=== PATIENT | male | born 1950 | race Caucasian/White ===

== ENCOUNTER 2017-02-20 11:19 | Emergency (ER) | payer OTHER, SELFPAY ==
[~2017-02-20] VITALS: Ht 172.7 cm; Wt 108.9 kg
[~2017-02-20 11:19] MED LIST changes: -Amoxicillin875 MG PO; -CLOP75 PO; -EPIPEN 2-P0.3 MG/0.3 IM; -EPIPEN0.3 MG/0.3; -FISH OIL 500 M1 EAC1 PO; -Guaifenesin-Co118 ML PO; -Keflex500 MG PO; -PANT20 PO
[2017-02-20] MEDS ORDERED: EPIPEN0.3 MG/0.3 (15:13)
[2017-06-02] MEDS ORDERED: FISH OIL 500 M1 EAC1 PO (22:21)
[2017-06-03] MEDS ORDERED: Guaifenesin-Co118 ML PO (00:05)
[2017-07-22] MEDS ORDERED: Omeprazole20 M1 PO (10:47)
[2017-10-20] MEDS ORDERED: Keflex500 MG PO (07:35)
== END 2017-02-20 16:20 | disposition home or self-care (01) ==
LOC: ER 11:19
DX: L76.21 Postprocedural hemorrhage of skin and subcutaneous tissue following a dermatologic procedure (principal); I10 Essential (primary) hypertension; K21.9 Gastro-esophageal reflux disease without esophagitis; E78.5 Hyperlipidemia, unspecified; Z91.030 Bee allergy status; Z79.899 Other long term (current) drug therapy; Z79.82 Long term (current) use of aspirin
CPT/HCPCS: 99282

== ENCOUNTER → 2017-02-20 | Outpatient (CLI) | payer OTHER, SELFPAY ==
[~2017-02-20] MED LIST: ASPI81CH PO; Amoxicillin875 MG PO; CLOP75 PO; Cheratussin AC118 ML PO; EPIPEN 2-P0.3 MG/0.3 IM; EPIPEN0.3 MG/0.3; FISH OIL 500 M1 EAC1 PO; Guaifenesin-Co118 ML PO; Keflex500 MG PO; LISI20 PO; Omeprazole20 M1 PO; PANT20 PO; Prednisone20 MG PO; Simvastatin40 MG PO; Vibramycin100 MG PO
== END ==
LOC: PLD 08:54 → LAB SHORT 08:54
DX: D48.5 Neoplasm of uncertain behavior of skin (principal); D03.39 Melanoma in situ of other parts of face
CPT/HCPCS: 88305

== ENCOUNTER 2017-02-22 22:15 | Emergency (ER) | payer OTHER, SELFPAY ==
[~2017-02-22] VITALS: Ht 172.7 cm; Wt 108.9 kg
[~2017-02-22 22:15] MED LIST changes: +EPIPEN0.3 MG/0.3
[2017-06-02] MEDS ORDERED: FISH OIL 500 M1 EAC1 PO (22:21)
[2017-06-03] MEDS ORDERED: Guaifenesin-Co118 ML PO (00:05)
[2017-07-22] MEDS ORDERED: Omeprazole20 M1 PO (10:47)
[2017-10-20] MEDS ORDERED: Keflex500 MG PO (07:35)
== END 2017-02-22 23:49 | disposition home or self-care (01) ==
LOC: ER 22:15
DX: L76.22 Postprocedural hemorrhage of skin and subcutaneous tissue following other procedure (principal); Z91.030 Bee allergy status; Z79.899 Other long term (current) drug therapy; Z79.82 Long term (current) use of aspirin; I25.2 Old myocardial infarction; Z85.828 Personal history of other malignant neoplasm of skin
CPT/HCPCS: 99282

== ENCOUNTER 2017-05-08 18:25 | Emergency (ER) | payer OTHER, SELFPAY ==
[~2017-05-08] VITALS: Ht 172.7 cm; Wt 108.9 kg
== END 2017-05-08 20:41 | disposition home or self-care (01) ==
LOC: ER 18:25
DX: M25.511 Pain in right shoulder (principal); I10 Essential (primary) hypertension; E78.5 Hyperlipidemia, unspecified; K21.9 Gastro-esophageal reflux disease without esophagitis; I25.2 Old myocardial infarction; Z91.030 Bee allergy status; Z79.82 Long term (current) use of aspirin; Z79.899 Other long term (current) drug therapy
CPT/HCPCS: 73030; 99283

== ENCOUNTER 2017-07-23 06:52 | Day surgery (SDC) | payer OTHER, SELFPAY ==
[~2017-07-23] VITALS: Ht 172.7 cm; Wt 114.8 kg
[~2017-07-23 06:52] MED LIST changes: +FISH OIL 500 M1 EAC1 PO; +Guaifenesin-Co118 ML PO
== END 2017-07-23 22:43 | disposition home or self-care (01) ==
LOC: ORSCMMR 06:52 → ORD 08:00 → ORSCMMR 22:43
PROVIDERS: Internal Medicine Gastroenterology
PROC: 0D758ZZ Dilation of Esophagus, Via Natural or Artificial Opening Endoscopic (ICD-10-PCS; principal; 2017-07-23 08:00)
PROC: 0DB58ZX Excision of Esophagus, Via Natural or Artificial Opening Endoscopic, Diagnostic (ICD-10-PCS; principal; 2017-07-23 08:00)
PROC: 0DB68ZX Excision of Stomach, Via Natural or Artificial Opening Endoscopic, Diagnostic (ICD-10-PCS; principal; 2017-07-23 08:00)
PROC: 0DB48ZX Excision of Esophagogastric Junction, Via Natural or Artificial Opening Endoscopic, Diagnostic (ICD-10-PCS; principal; 2017-07-23 08:00)
DX: R13.14 Dysphagia, pharyngoesophageal phase (principal); K21.0 Gastro-esophageal reflux disease with esophagitis; K29.70 Gastritis, unspecified, without bleeding; I25.10 Atherosclerotic heart disease of native coronary artery without angina pectoris; Z79.899 Other long term (current) drug therapy; Z79.82 Long term (current) use of aspirin
CPT/HCPCS: 88305; 88342; C1726; J7030

== ENCOUNTER 2017-08-06 23:55 | Emergency (ER) | payer OTHER ==
[~2017-08-06] VITALS: Ht 172.7 cm; Wt 113.4 kg
[2017-08-07] MEDS ORDERED: PANT20 PO (00:50)
[2017-08-07] MEDS ORDERED: CLOP75 PO (00:50)
[2017-08-07] MEDS ORDERED: EPIPEN 2-P0.3 MG/0.3 IM (00:51)
[2017-08-07] MEDS ORDERED: Amoxicillin875 MG PO (02:41)
== END 2017-08-07 03:03 | disposition home or self-care (01) ==
LOC: ER 23:55
DX: J02.0 Streptococcal pharyngitis (principal); Z91.030 Bee allergy status; Z79.899 Other long term (current) drug therapy; Z79.2 Long term (current) use of antibiotics; I25.2 Old myocardial infarction
CPT/HCPCS: 87430; 99283

== ENCOUNTER 2017-08-07 06:36 | Emergency (ER) | payer OTHER ==
[~2017-08-07] VITALS: Ht 170.2 cm; Wt 99.8 kg
[~2017-08-07 06:36] MED LIST changes: +Amoxicillin875 MG PO; +CLOP75 PO; +EPIPEN 2-P0.3 MG/0.3 IM; +PANT20 PO
== END 2017-08-07 07:30 | disposition home or self-care (01) ==
LOC: ER 06:36
DX: H92.02 Otalgia, left ear (principal); Z91.030 Bee allergy status; Z79.899 Other long term (current) drug therapy; Z79.2 Long term (current) use of antibiotics; I25.2 Old myocardial infarction
CPT/HCPCS: 99282

== ENCOUNTER 2017-08-07 18:15 | Emergency (ER) | payer OTHER ==
[~2017-08-07] VITALS: Ht 172.7 cm; Wt 113.4 kg
== END 2017-08-07 20:15 | disposition left against medical advice (07) ==
LOC: ER 18:15
DX: Z53.21 Procedure and treatment not carried out due to patient leaving prior to being seen by health care provider (principal)

== ENCOUNTER → 2017-09-16 | Outpatient (CLI) | payer OTHER | LOC: LAB SHORT 17:56 → LAB 17:56 | DX: Z48.02 Encounter for removal of sutures (principal); L08.9 Local infection of the skin and subcutaneous tissue, unspecified | CPT/HCPCS: 87070; 87077; 87147; 87186; 87205 ==

== ENCOUNTER 2018-01-27 09:27 | Day surgery (SDC) | payer OTHER ==
[~2018-01-27] VITALS: Ht 172.7 cm; Wt 114.3 kg
[~2018-01-27 09:27] MED LIST changes: +Keflex500 MG PO
== END 2018-01-27 11:00 | disposition home or self-care (01) ==
LOC: ORSCMMR 09:27 → ORD 10:30 → ORSCMMR 10:30
PROVIDERS: Internal Medicine Gastroenterology
PROC: 0DBH8ZX Excision of Cecum, Via Natural or Artificial Opening Endoscopic, Diagnostic (ICD-10-PCS; principal; 2018-01-27 10:30)
PROC: 0DBL8ZX Excision of Transverse Colon, Via Natural or Artificial Opening Endoscopic, Diagnostic (ICD-10-PCS; principal; 2018-01-27 10:30)
DX: Z12.11 Encounter for screening for malignant neoplasm of colon (principal); D12.0 Benign neoplasm of cecum; K63.5 Polyp of colon; K57.30 Diverticulosis of large intestine without perforation or abscess without bleeding; Z86.010 Personal history of colon polyps; K21.9 Gastro-esophageal reflux disease without esophagitis; Z87.11 Personal history of peptic ulcer disease; I10 Essential (primary) hypertension; I25.2 Old myocardial infarction; Z79.01 Long term (current) use of anticoagulants; Z79.899 Other long term (current) drug therapy
CPT/HCPCS: 88305; J7120

== ENCOUNTER 2018-03-24 07:29 | Emergency (ER) | payer OTHER ==
[~2018-03-24] VITALS: Ht 172.7 cm; Wt 113.4 kg
[2018-03-24] MEDS ORDERED: CLOP75 PO (07:58)
[2018-03-24] MEDS ORDERED: Percocet 5-3251 EACH PO (09:02)
== END 2018-03-24 09:20 | disposition home or self-care (01) ==
LOC: ER 07:29
DX: M25.511 Pain in right shoulder (principal); I25.2 Old myocardial infarction; Z91.030 Bee allergy status; Z79.899 Other long term (current) drug therapy
CPT/HCPCS: 73030; 99283-25

== ENCOUNTER 2018-04-26 20:03 | Emergency (ER) | payer OTHER ==
[~2018-04-26] VITALS: Ht 172.7 cm; Wt 112.9 kg
[~2018-04-26 20:03] MED LIST changes: +Percocet 5-3251 EACH PO
[2018-04-26 21:06] LABS: BASOPHILS ABSOLUTE AUTO 0.12 K/mm3 (0.00-0.23); BASOPHILS PERCENT AUTO 1 % (0-2); EOSINOPHILS PERCENT AUTO 1 % (0-6); Hematocrit 46.2 % (37.0-53.0); Hemoglobin 15.2 g/dL (13.5-17.5); IMMATURE GRAN ABSOLUTE AUTO 0.08 K/mm3 (0.00-0.10); IMMATURE GRAN PERCENT AUTO 1 % (0-1); LYMPHOCYTES ABSOLUTE AUTO 1.73 K/mm3 (0.84-5.20); LYMPHOCYTES PERCENT AUTO 15 % (21-46); MONOCYTES ABSOLUTE AUTO 0.58 K/mm3 (0.16-1.47); MONOCYTES PERCENT AUTO 5 % (4-13); Mean Corpuscular HGB 30.5 pg (26.0-34.0); Mean Corpuscular HGB Conc 32.9 g/dL (31.5-36.5); Mean Corpuscular Volume 93 fL (80-100); Mean Platelet Volume 8.7 fL (9.1-12.4); NEUTROPHILS ABSOLUTE AUTO 8.63 K/mm3 (1.96-9.15); NEUTROPHILS PERCENT AUTO 77 % (41-73); Platelet Count 270 K/mm3 (150-400); RDW Coefficient Variation 12.5 % (11.7-14.2); RDW Standard Deviation 42.6 fL (35.1-46.3); Red Blood Cell Count 4.98 M/mm3 (4.30-5.90); White Blood Cell Count 11.24 K/mm3 (4.00-11.30)
[2018-04-26 21:24] LABS: Alanine Aminotransfer (ALT/SGP 26 U/L (12-78); Albumin, Blood 3.9 g/dL (3.4-5.0); Albumin/Globulin Ratio 1.1 (0.8-1.8); Alk Phos 76 U/L (50-136); Anion Gap 5 mmol/L (6-16); Aspartate Aminotrans (AST/SGOT 14 U/L (12-37); Bilirubin, Total 0.5 mg/dL (0.1-1.0); Blood Urea Nitrogen 17 mg/dL (8-24); Bun/Creatinine Ratio 18.2 (12.0-20.0); CO2, Blood 27 mmol/L (21-32); Calcium, Blood 8.9 mg/dL (8.5-10.1); Chloride, Blood 106 mmol/L (98-108); Creatinine, Blood 0.93 mg/dL (0.60-1.20); Globulin, Blood 3.7 g/dL (2.2-4.0); Glomerular Filtration Rate >60 (60-); Glucose, Blood 128 mg/dL (70-99); Sodium, Blood 138 mmol/L (136-145); Total Protein, Blood 7.6 g/dL (6.4-8.2); Troponin I <0.015 ng/mL (0.000-0.040)
[2018-04-26 22:21] LABS: Influenza A Negative (NEGATIVE); Influenza B Negative (NEGATIVE)
[2018-04-26] MEDS ORDERED: HYDR1TAB94 PO (22:33)
== END 2018-04-26 22:50 | disposition home or self-care (01) ==
LOC: ER 20:03
PROVIDERS: Physician Assistant
DX: M79.10 Myalgia, unspecified site (principal); I25.2 Old myocardial infarction; Z91.030 Bee allergy status; Z79.899 Other long term (current) drug therapy
CPT/HCPCS: 36415; 80053; 84484; 85025; 87804

== ENCOUNTER 2018-11-23 14:12 | Emergency (ER) | payer OTHER ==
[~2018-11-23] VITALS: Ht 172.7 cm; Wt 111.1 kg
[~2018-11-23 14:12] MED LIST changes: +HYDR1TAB94 PO
[2018-11-23] MEDS ORDERED: CLOP75 PO (15:01)
[2018-11-23] MEDS ORDERED: Protonix40 MG PO (15:02)
[2018-11-23] MEDS ORDERED: Bactrim Ds Tab1 EACH PO (15:03)
[2018-11-23] MEDS ORDERED: CEPH500 PO (15:03)
== END 2018-11-23 15:05 | disposition home or self-care (01) ==
LOC: ER 14:12
DX: L02.512 Cutaneous abscess of left hand (principal); L03.114 Cellulitis of left upper limb; I25.2 Old myocardial infarction; K21.9 Gastro-esophageal reflux disease without esophagitis; Z91.038 Other insect allergy status; Z79.899 Other long term (current) drug therapy; Z79.01 Long term (current) use of anticoagulants
CPT/HCPCS: 99283

== ENCOUNTER → 2020-02-09 | Outpatient (CLI) | payer OTHER, SELFPAY ==
[~2020-02-09] MED LIST changes: +Bactrim Ds Tab1 EACH PO; +CEPH500 PO; +CYCL10 PO; +LIDO700A20 TOP; +Protonix40 MG PO
== END | disposition home or self-care (01) ==
LOC: LAB 13:45 → LAB SHORT 13:45
DX: L03.114 Cellulitis of left upper limb (principal)
CPT/HCPCS: 87070; 87075; 87205

== ENCOUNTER 2020-04-17 17:42 | Emergency (ER) | payer OTHER, SELFPAY ==
[~2020-04-17] VITALS: Ht 172.7 cm; Wt 117.9 kg
[~2020-04-17 17:42] MED LIST changes: -CYCL10 PO; -LIDO700A20 TOP
== END 2020-04-17 18:31 | disposition home or self-care (01) ==
LOC: ER 17:42
DX: J06.9 Acute upper respiratory infection, unspecified (principal); I25.2 Old myocardial infarction; K21.9 Gastro-esophageal reflux disease without esophagitis; Z91.030 Bee allergy status; Z79.899 Other long term (current) drug therapy
CPT/HCPCS: 71046; 99283-25

== ENCOUNTER 2020-05-04 18:01 | Emergency (ER) | payer OTHER ==
[~2020-05-04] VITALS: Ht 172.7 cm; Wt 117.9 kg
[2020-05-04] MEDS ORDERED: CYCL10 PO (20:08)
[2020-05-04] MEDS ORDERED: LIDO700A20 TOP (20:08)
== END 2020-05-04 20:09 | disposition home or self-care (01) ==
LOC: ER 18:01
DX: M54.42 Lumbago with sciatica, left side (principal); I10 Essential (primary) hypertension; I25.2 Old myocardial infarction; K21.9 Gastro-esophageal reflux disease without esophagitis; Z91.030 Bee allergy status; Z79.899 Other long term (current) drug therapy; Z79.02 Long term (current) use of antithrombotics/antiplatelets
CPT/HCPCS: 99283; A9270

== ENCOUNTER → 2021-06-12 | Outpatient (CLI) | payer OTHER ==
[~2021-06-12] MED LIST changes: +CYCL10 PO; +LIDO700A20 TOP
[2021-06-12 16:09] LABS: Source, Urine Clean Catch
[2021-06-12 17:38] LABS: Appearance, Urine Clear (Clear); Bilirubin, Urine Neg (Neg); Blood, Urine Neg (Neg); Color, Urine Yellow (P-Yellow); Glucose Qualitative, Urine Neg (Neg); Ketones, Urine Neg (Neg); Leukocyte Esterase, Urine Neg (Neg); Nitrite, Urine Neg (Neg); Protein, Urine Neg (Neg); Specific Gravity, Urine 1.005 (1.003-1.022); Urobilinogen, Urine NORM (Normal)
== END | disposition home or self-care (01) ==
LOC: LAB SHORT 15:55 → LAB 15:55
PROVIDERS: Student in an Organized Health Care Education/Training Program
DX: R31.29 Other microscopic hematuria (principal)
CPT/HCPCS: 81003

== ENCOUNTER 2021-06-29 20:15 | Emergency (ER) | payer OTHER ==
[~2021-06-29] VITALS: Ht 172.7 cm; Wt 120.2 kg
== END 2021-06-29 22:00 | disposition home or self-care (01) ==
LOC: ER 20:15
DX: S50.312A Abrasion of left elbow, initial encounter (principal); I25.2 Old myocardial infarction; I10 Essential (primary) hypertension; W01.0XXA Fall on same level from slipping, tripping and stumbling without subsequent striking against object, initial encounter; Z96.642 Presence of left artificial hip joint; Z79.899 Other long term (current) drug therapy; Z91.030 Bee allergy status
CPT/HCPCS: 99282

== ENCOUNTER 2021-10-07 10:22 | Emergency (ER) | payer OTHER ==
[~2021-10-07] VITALS: Ht 172.7 cm; Wt 120.2 kg
[2021-10-07] MEDS ORDERED: LIDO700A20 TOP (11:11)
== END 2021-10-07 11:21 | disposition home or self-care (01) ==
LOC: ER 10:22
DX: M54.50 Low back pain, unspecified (principal); G89.29 Other chronic pain; I10 Essential (primary) hypertension; I25.2 Old myocardial infarction
CPT/HCPCS: J1885

== ENCOUNTER → 2021-11-29 | Outpatient (CLI) | payer OTHER ==
[2021-11-29 17:46] LABS: BASOPHILS ABSOLUTE AUTO 0.06 K/mm3 (0.00-0.23); BASOPHILS PERCENT AUTO 1 % (0-2); EOSINOPHILS ABSOLUTE AUTO 0.18 K/mm3 (0.00-0.68); EOSINOPHILS PERCENT AUTO 4 % (0-6); Hematocrit 42.3 % (37.0-53.0); Hemoglobin 14.5 g/dL (13.5-17.5); IMMATURE GRAN ABSOLUTE AUTO 0.02 K/mm3 (0.00-0.10); IMMATURE GRAN PERCENT AUTO 0 % (0-1); LYMPHOCYTES ABSOLUTE AUTO 1.42 K/mm3 (0.84-5.20); LYMPHOCYTES PERCENT AUTO 28 % (21-46); MONOCYTES ABSOLUTE AUTO 0.47 K/mm3 (0.16-1.47); MONOCYTES PERCENT AUTO 9 % (4-13); Mean Corpuscular HGB 30.2 pg (26.0-34.0); Mean Corpuscular HGB Conc 34.3 g/dL (31.5-36.5); Mean Corpuscular Volume 88 fL (80-100); Mean Platelet Volume 8.9 fL (9.1-12.4); NEUTROPHILS ABSOLUTE AUTO 2.96 K/mm3 (1.96-9.15); NEUTROPHILS PERCENT AUTO 58 % (41-73); Platelet Count 249 K/mm3 (150-400); RDW Coefficient Variation 12.9 % (11.7-14.2); RDW Standard Deviation 41.6 fL (35.1-46.3); White Blood Cell Count 5.11 K/mm3 (4.00-11.30)
[2021-11-29 17:57] LABS: Albumin, Blood 3.7 g/dL (3.4-5.0); Albumin/Globulin Ratio 1.2 (0.8-1.8); Bilirubin, Total 0.6 mg/dL (0.1-1.0); Bun/Creatinine Ratio 10.9 (12.0-20.0); Creatinine, Blood 1.19 mg/dL (0.60-1.20); Globulin, Blood 3.1 g/dL (2.2-4.0); Potassium, Blood 3.8 mmol/L (3.5-5.5); Total Protein, Blood 6.8 g/dL (6.4-8.2)
== END ==
LOC: LAB SHORT 17:41 → LAB 17:41
PROVIDERS: Chiropractor
DX: R06.00 Dyspnea, unspecified (principal)
CPT/HCPCS: 80053; 84484; 85025